=== PATIENT | female | born 1990 | race Hispanic/Latino ===

== ENCOUNTER 2018-03-26 19:43 | Emergency (ER) | payer MEDICAID, OTHER ==
[2018-03-26 20:25] LABS: BASOPHILS % (AUTO) 0.6 % (0.0-5.0); EOSINOPHILS % (AUTO) 0.7 % (0.0-8.0); HEMATOCRIT 38.8 % (36-48); LYMPHOCYTES % (AUTO) 27.3 % (21.0-51.0); MEAN CORPUSCULAR HEMOGLOBIN 29.4 pg (27.0-33.0); MEAN CORPUSCULAR VOLUME 86.6 fL (79-99); MONOCYTES % (AUTO) 6.3 % (3.0-13.0); NEUTROPHILS % (AUTO) 65.1 % (40.0-77.0); PLATELET COUNT (AUTO) 302 K/uL (130-400); RED BLOOD CELL COUNT(AUTO) 4.48 MIL/uL (4.00-5.50); RED CELL DISTRIBUTION WIDTH 14.1 % (11.0-15.5)
[2018-03-26 20:35] LABS: APPEARANCE,URINE Clear (CLEAR); BILIRUBIN,URINE Negative (NEGATIVE); COLOR,URINE Yellow (YELLOW); GLUCOSE, URINE (UA) Negative (NEGATIVE); KETONES,URINE Negative (NEGATIVE); LEUKOCYTE ESTERASE ,URINE Small (NEGATIVE); NITRATE,URINE Negative (NEGATIVE); OCCULT BLOOD,URINE Small (NEGATIVE); PH,URINE 7.5 (5.0-8.0); PROTEIN,URINE Negative (NEGATIVE); UROBILINOGEN,URINE 0.2 mg/dL (0.2-1.0)
[2018-03-26 20:41] LABS: CREATININE 0.7 mg/dL (0.5-1.5); POTASSIUM 3.7 mmol/L (3.5-5.1)
[2018-03-26 21:20] LABS: BACTERIA,URINE Rare /HPF (None Seen); RBC,URINE 0-1 /HPF (0-1); WBC,URINE 0-1 /HPF (0-1)
[2018-03-26 21:21] LABS: SQUAMOUS EPITHELIAL CELL,UR Rare /HPF (0-2)
== END 2018-03-26 23:28 | disposition home or self-care (01) ==
LOC: EDH 19:43
DX: O20.0 Threatened abortion (principal); Z79.899 Other long term (current) drug therapy; Z98.890 Other specified postprocedural states; Z3A.09 9 weeks gestation of pregnancy
CPT/HCPCS: 36415; 76801; 80048; 81001; 84702; 85025; 86900; 86901; 87210; 87486; 87797

== ENCOUNTER 2022-09-22 16:26 | Emergency (ER) | payer MEDICAID, OTHER ==
[~2022-09-22] VITALS: Ht 160 cm; Wt 65.8 kg
[2022-09-22 16:30] VITALS: BP 144/79
[2022-09-22] MEDS ORDERED: IPRATROPIUM/ALBUTEROL SULFATE 3 ML SOLUTION IH ONE (17:00)
[2022-09-22] MEDS ORDERED: 0.9%NACL 1000ML 1,000 ML IV ONE (17:00)
[2022-09-22] MEDS ORDERED: ONDANSETRON 4MG INJ IVP ONE (17:00)
[2022-09-22] MEDS ORDERED: FAMOTIDINE 20MG VIAL IV ONE (17:00)
[2022-09-22] MEDS ORDERED: DiphenhydrAMINE HCL 50 MG/ML VIAL IV ONE (17:00)
[2022-09-22] MEDS ORDERED: SOLU-MEDROL 125MG VIAL IVP ONE (17:00)
[2022-09-22] MEDS ORDERED: FAMO40TA75 PO (18:32)
[2022-09-22] MEDS ORDERED: HYDR-3421 PO (18:32)
[2022-09-22] MEDS ORDERED: METH4TAB3 PO (18:32)
== END 2022-09-22 18:38 | disposition home or self-care (01) ==
LOC: EDH 16:26
DX: L50.9 Urticaria, unspecified (principal); T78.49XA Other allergy, initial encounter; Z98.890 Other specified postprocedural states; X58.XXXA Exposure to other specified factors, initial encounter
CPT/HCPCS: 99291; 96374; 96375; 96361; 94640; J1200; J3490; J7030; J2930; J2405 ×2

== ENCOUNTER 2023-03-26 18:49 | Emergency (ER) | payer OTHER ==
[~2023-03-26] VITALS: Ht 157.5 cm; Wt 59.9 kg
[~2023-03-26 18:49] MED LIST: FAMO40TA75 PO; HYDR-3421 PO; METH4TAB3 PO
[2023-03-26 19:57] LABS: RAPID GROUP A STREP negative (NEGATIVE)
[2023-03-26] MEDS ORDERED: HYDROCODONE/ACETAMINOPHEN 5/325 MG TAB PO ONE (20:00)
[2023-03-26 20:07] LABS: INFLUENZA TYPE A Negative For Type A (NEGATIVE); INFLUENZA TYPE B Negative For Type B (NEGATIVE)
[2023-03-26 20:21] VITALS: BP 121/60; PULSE 80; RESP 14; O2SAT 98
[2023-03-26 20:27] LABS: SARS-CoV-2, RNA, NAAT NEGATIVE SARS CoV-2 (NEGATIVE)
== END 2023-03-26 21:32 | disposition left against medical advice (07) ==
LOC: EDH 18:49
DX: J02.9 Acute pharyngitis, unspecified (principal); Z20.822 Contact with and (suspected) exposure to COVID-19; Z53.21 Procedure and treatment not carried out due to patient leaving prior to being seen by health care provider
CPT/HCPCS: 99281; 87635; 87880; 87804 ×2; 81025; C9803

== ENCOUNTER 2023-04-10 05:45 | Inpatient (IN) | payer OTHER ==
[~2023-04-10] VITALS: Ht 154.9 cm; Wt 61.2 kg
[2023-04-10] MEDS ORDERED: NITROGLYCERIN 1GM OINT 1 INCH/1GM TD ONE (06:00)
[2023-04-10] MEDS ORDERED: LORAZEPAM 2 MG/ML 1 ML VIAL IVP ONE (06:00)
[2023-04-10] MEDS ORDERED: ASPIRIN 325MG TAB PO ONE (06:00)
[2023-04-10 06:03] LABS: BASOPHILS # (AUTO) 0.04 K/uL (0.00-0.20); BASOPHILS % (AUTO) 0.6 % (0.0-5.0); EOSINOPHILS # (AUTO) 0.23 K/uL (0.00-0.70); EOSINOPHILS % (AUTO) 3.5 % (0.0-8.0); HEMATOCRIT 36.2 % (36-48); IMMATURE GRANULOCYTE ABSOLUTE 0.03 K/uL (0-1); MEAN CORPUSCULAR HGB CONC 30.7 g/dL (32.0-36.0); MEAN CORPUSCULAR VOLUME 74.9 fL (79-99); MONOCYTES # (AUTO) 0.5 K/uL (0.1-1.0); MONOCYTES % (AUTO) 8.1 % (3.0-13.0); NEUTROPHILS # (AUTO) 3.7 K/uL (1.8-7.7); NEUTROPHILS % (AUTO) 56.3 % (40.0-77.0); PLATELET COUNT (AUTO) 475 K/uL (130-400); RED BLOOD CELL COUNT(AUTO) 4.83 MIL/uL (4.00-5.50); WHITE BLOOD COUNT (AUTO) 6.5 K/uL (4.8-10.8)
[2023-04-10 06:18] LABS: APPEARANCE,URINE CLEAR (CLEAR); BILIRUBIN,URINE NEGATIVE (NEGATIVE); COLOR,URINE COLORLESS (YELLOW); GLUCOSE, URINE (UA) NEGATIVE (NEGATIVE); KETONES,URINE NEGATIVE (NEGATIVE); LEUKOCYTE ESTERASE ,URINE NEGATIVE Leu/uL (NEGATIVE); NITRATE,URINE NEGATIVE (NEGATIVE); OCCULT BLOOD,URINE NEGATIVE (NEGATIVE); PH,URINE 5.5 (5.0-8.0); PROTEIN,URINE NEGATIVE (NEGATIVE); UROBILINOGEN,URINE 0.2 mg/dL (0.2-1.0)
[2023-04-10 06:22] LABS: ALCOHOL, BLOOD < 3 mg/dL (0-10)
[2023-04-10 06:28] LABS: CHLORIDE 98 mmol/L (101-111); CREATINE KINASE, TOTAL 79 U/L (21-232); CREATININE 0.7 mg/dL (0.5-1.5); GLOMERULAR FILTR. RATE CALC 116 mL/min (>90); GLUCOSE,RANDOM 98 mg/dL (70-105); POTASSIUM 3.2 mmol/L (3.5-5.1); SODIUM SERUM 136 mmol/L (136-145); UREA NITROGEN, BLOOD 4 mg/dL (7-18)
[2023-04-10 06:32] LABS: AMPHET/METH SCREEN,URINE NEGATIVE (NEGATIVE); BARBITURATE SCREEN, URINE NEGATIVE (NEGATIVE); BENZODIAZEPINES SCREEN,URINE NEGATIVE (NEGATIVE); CANNABINOID SCREEN,URINE NEGATIVE (NEGATIVE); COCAINE SCREEN,URINE POSITIVE (NEGATIVE); OPIATE SCREEN,URINE NEGATIVE (NEGATIVE); PHENCYCLIDINE SCREEN,URINE NEGATIVE (NEGATIVE)
[2023-04-10 06:36] LABS: CARBON DIOXIDE 23 mmol/L (21-32)
[2023-04-10 06:37] LABS: HCG,QUALITATIVE URINE NEGATIVE (NEGATIVE)
[2023-04-10 06:38] LABS: ADD UA MICROSCOPIC NO
[2023-04-10 06:52] LABS: B-TYPE NATRIURETIC PEPTIDE < 5 pg/mL (0-100)
[2023-04-10] MEDS ORDERED: METOPROLOL TARTRATE 1 MG/ML 5ML VIAL IV PRN (07:00)
[2023-04-10] MEDS ORDERED: KCL 20 MEQ ERTAB PO ONE (08:30)
[2023-04-10] MEDS ORDERED: PHARMACY COMMUNICATION MISC PRN (09:30)
[2023-04-10] MEDS ORDERED: CHLORDIAZEPOXIDE HCL 25 MG CAP PO PRN (09:30)
[2023-04-10] MEDS ORDERED: THIAMINE HCL 100 MG, FOLIC ACID 1 MG, M.V.I. IV [ADULT] 10 ML in 0.9%NACL 1000ML 1,000 ML IV SCH (09:30)
[2023-04-10] MEDS ORDERED: LORAZEPAM 2 MG/ML 1 ML VIAL IVP PRN (09:30)
[2023-04-10] MEDS ORDERED: CHLORDIAZEPOXIDE HCL 25 MG CAP PO ONE (11:30)
[2023-04-10 17:00] VITALS: O2SAT 99
[2023-04-10 19:28] VITALS: BP 101/85; PULSE 103; RESP 20
[2023-04-10 20:00] VITALS: O2SAT 99
[2023-04-10] MEDS ORDERED: FAMOTIDINE 20MG TAB PO SCH (21:00)
== END 2023-04-10 23:36 | disposition left against medical advice (07) | DRG 313 ==
LOC: EDH 05:45 → EDHIP 09:01 → 2DH 16:11
PROVIDERS: ADMIT Internal Medicine; ATTEND Internal Medicine
DX: R07.89 Other chest pain (principal); F14.10 Cocaine abuse, uncomplicated; F17.210 Nicotine dependence, cigarettes, uncomplicated; F32.A Depression, unspecified; F41.1 Generalized anxiety disorder; F43.22 Adjustment disorder with anxiety; F10.90 Alcohol use, unspecified, uncomplicated; Y90.9 Presence of alcohol in blood, level not specified; R00.0 Tachycardia, unspecified
CPT/HCPCS: 36415; 71045; 80048; 80305; 81003; 81025; 82550; 83735; 83880; 84484; 85025; 93005; 93306; 96365; 96375; G0378; J2060; J3411; J3490; J7030

== ENCOUNTER 2024-03-07 20:11 | Emergency (ER) | payer SELFPAY ==
[~2024-03-07] VITALS: Ht 162.6 cm; Wt 68.9 kg
[2024-03-07 20:15] VITALS: TEMP 98.3
[2024-03-07 21:09] LABS: BASOPHILS # (AUTO) 0.04 K/uL (0.00-0.20); BASOPHILS % (AUTO) 0.6 % (0.0-5.0); EOSINOPHILS # (AUTO) 0.28 K/uL (0.00-0.70); EOSINOPHILS % (AUTO) 4.5 % (0.0-8.0); HEMATOCRIT 35.8 % (36-48); IMMATURE GRANULOCYTE ABSOLUTE 0.09 K/uL (0-1); LYMPHOCYTES # (AUTO) 1.7 K/uL (1.0-4.8); LYMPHOCYTES % (AUTO) 26.2 % (21.0-51.0); MEAN CORPUSCULAR HEMOGLOBIN 23.6 pg (27.0-33.0); MEAN CORPUSCULAR HGB CONC 30.2 g/dL (32.0-36.0); MEAN CORPUSCULAR VOLUME 78.3 fL (79-99); MONOCYTES # (AUTO) 0.7 K/uL (0.1-1.0); MONOCYTES % (AUTO) 10.8 % (3.0-13.0); NEUTROPHILS # (AUTO) 3.6 K/uL (1.8-7.7); NEUTROPHILS % (AUTO) 56.5 % (40.0-77.0); PLATELET COUNT (AUTO) 359 K/uL (130-400); RED BLOOD CELL COUNT(AUTO) 4.57 MIL/uL (4.00-5.50); RED CELL DISTRIBUTION WIDTH 17.2 % (11.0-15.5); WHITE BLOOD COUNT (AUTO) 6.3 K/uL (4.8-10.8)
[2024-03-07 21:17] LABS: CREATININE 0.9 mg/dL (0.5-1.0)
[2024-03-07 22:21] LABS: COVID19 (SARS ANTIGEN RAPID) PRESUMPTIVE NEGATIVE (NEGATIVE); INFLUENZA TYPE A Negative For Type A (NEGATIVE); INFLUENZA TYPE B Negative For Type B (NEGATIVE)
[2024-03-07 23:17] LABS: APPEARANCE,URINE CLOUDY (CLEAR); BILIRUBIN,URINE NEGATIVE (NEGATIVE); COLOR,URINE YELLOW (YELLOW); GLUCOSE, URINE (UA) NEGATIVE (NEGATIVE); KETONES,URINE 5 mg/dL (NEGATIVE); LEUKOCYTE ESTERASE ,URINE 500 Leu/uL (NEGATIVE); NITRATE,URINE NEGATIVE (NEGATIVE); OCCULT BLOOD,URINE NEGATIVE (NEGATIVE); PROTEIN,URINE 70 mg/dL (NEGATIVE)
[2024-03-07 23:24] LABS: AMPHET/METH SCREEN,URINE NEGATIVE (NEGATIVE); BARBITURATE SCREEN, URINE NEGATIVE (NEGATIVE); BENZODIAZEPINES SCREEN,URINE NEGATIVE (NEGATIVE); CANNABINOID SCREEN,URINE NEGATIVE (NEGATIVE); COCAINE SCREEN,URINE POSITIVE (NEGATIVE); OPIATE SCREEN,URINE NEGATIVE (NEGATIVE); PHENCYCLIDINE SCREEN,URINE NEGATIVE (NEGATIVE)
[2024-03-07 23:26] LABS: ADD UA MICROSCOPIC YES
[2024-03-07 23:30] LABS: BACTERIA,URINE FEW /HPF (None Seen); MUCUS,URINE MANY LPF (None Seen); SQUAMOUS EPITHELIAL CELL,UR FEW /HPF (0-2); WBC,URINE TNTC /HPF (0-1)
[2024-03-07] MEDS: cefTRIAXone 1G VIAL IM ONE (23:58)
[2024-03-08 00:11] VITALS: BP 108/52; PULSE 74; RESP 18; O2SAT 96
[2024-03-08] MEDS ORDERED: SULF1TAB42 PO (00:12)
[2024-03-08] MEDS ORDERED: ERYT1OIN7 OP (00:12)
== END 2024-03-08 00:37 | disposition home or self-care (01) ==
LOC: EDH 20:11
DX: R55 Syncope and collapse (principal); D64.9 Anemia, unspecified; N39.0 Urinary tract infection, site not specified; F14.10 Cocaine abuse, uncomplicated; M79.89 Other specified soft tissue disorders; Z79.899 Other long term (current) drug therapy; Z20.822 Contact with and (suspected) exposure to COVID-19
CPT/HCPCS: 99285; 70450; 71045; 87426; 84484; 80048; 80305; 84703; 85025; 87086 ×2; 87186; 87804 ×2; 36415; 96372; 93005; 81001; J0696

== ENCOUNTER 2024-09-14 03:15 | Emergency (ER) | payer BC, MEDICAID ==
[~2024-09-14] VITALS: Ht 157.5 cm; Wt 65.8 kg
[~2024-09-14 03:15] MED LIST changes: +ERYT1OIN7 OP; +SULF1TAB42 PO
[2024-09-14 03:51] LABS: BASOPHILS # (AUTO) 0.08 K/uL (0.00-0.20); BASOPHILS % (AUTO) 0.8 % (0.0-5.0); HEMATOCRIT 42.8 % (36-48); IMMATURE GRANULOCYTE ABSOLUTE 0.04 K/uL (0-1); LYMPHOCYTES # (AUTO) 2.4 K/uL (1.0-4.8); LYMPHOCYTES % (AUTO) 23.7 % (21.0-51.0); MEAN CORPUSCULAR HEMOGLOBIN 26.2 pg (27.0-33.0); MEAN CORPUSCULAR HGB CONC 31.8 g/dL (32.0-36.0); MEAN CORPUSCULAR VOLUME 82.5 fL (79-99); MONOCYTES # (AUTO) 0.6 K/uL (0.1-1.0); MONOCYTES % (AUTO) 6.3 % (3.0-13.0); NEUTROPHILS # (AUTO) 6.8 K/uL (1.8-7.7); NEUTROPHILS % (AUTO) 67.8 % (40.0-77.0); PLATELET COUNT (AUTO) 481 K/uL (130-400); RED BLOOD CELL COUNT(AUTO) 5.19 MIL/uL (4.00-5.50); RED CELL DISTRIBUTION WIDTH 15.9 % (11.0-15.5); WHITE BLOOD COUNT (AUTO) 10.1 K/uL (4.8-10.8)
[2024-09-14 03:56] LABS: CREATININE 0.7 mg/dL (0.5-1.0); POTASSIUM 3.6 mmol/L (3.5-5.1)
[2024-09-14 03:59] LABS: APPEARANCE,URINE CLOUDY (CLEAR); BILIRUBIN,URINE NEGATIVE (NEGATIVE); COLOR,URINE LIGHT-YELLOW (YELLOW); GLUCOSE, URINE (UA) NEGATIVE (NEGATIVE); KETONES,URINE 10 mg/dL (NEGATIVE); LEUKOCYTE ESTERASE ,URINE 500 Leu/uL (NEGATIVE); NITRATE,URINE NEGATIVE (NEGATIVE); OCCULT BLOOD,URINE SMALL (NEGATIVE); PROTEIN,URINE NEGATIVE (NEGATIVE); UROBILINOGEN,URINE 0.2 mg/dL (0.2-1.0)
[2024-09-14 04:00] LABS: ADD UA MICROSCOPIC YES
[2024-09-14 04:04] LABS: BACTERIA,URINE FEW /HPF (None Seen); MUCUS,URINE RARE LPF (None Seen); NON-SQUAMOUS EPITHELIAL CELL 1 /HPF (0-2); SQUAMOUS EPITHELIAL CELL,UR MOD /HPF (0-2); WBC CLUMP FEW /HPF (0-1); WBC,URINE 26-50 /HPF (0-1)
--- NOTE | 2024-09-14 04:09 | ERN ---
General Chief Complaint: Shortness of Breath Stated Complaint: SOB Time Seen by MD: 03:40 Source: patient History of Present Illness Initial Comments Patient is a 34-year-old female who has not slept in two days from OD in on cocaine per her . He found her collapsed on the floor and brought her to the ED. it was a witnessed collapse and he thinks she was lying on the floor for maybe all of 5 minutes. Patient is extremely somnolent and so I was not able to get much history from her. Timing/Duration: 24 hours Allergies: Coded Allergies: No Known Drug Allergies (Unverified Allergy, Unknown, 06/06/16) Home Meds Active Scripts Erythromycin Base (Erythromycin) 5 Mg/Gram (0.5 %) Oint...g., 1 APPL OP DAILY for 14 Days, #1 UNIT 0 Refills apply 1 cm ribbon into the lower conjunctival sac Prov:NISSA ELMORE MD 03/08/24 Sulfamethoxazole/Trimethoprim (Bactrim Ds Tablet) 800 Mg-160 Mg Tablet, 1 TAB PO BID for 7 Days, #14 TAB 0 Refills Prov:NISSA ELMORE MD 03/08/24 Famotidine (Pepcid) 40 Mg Tablet, 40 MG PO DAILY for 5 Days, #5 TAB Prov:ADELIA LEON 09/22/22 Hydroxyzine HCl (Hydroxyzine HCl) 25 Mg Tablet, 25 MG PO BID for 5 Days, #10 TAB Prov:ADELIA LEON 09/22/22 Methylprednisolone (Medrol) 4 Mg Tab.ds.pk, 4 MG PO AD for 5 Days, #1 PACK Prov:ADELIA LEON 09/22/22 Past Medical History Past Medical History: No Pertinent History Past Surgical History: Social History Social History: Drugs ROS Dictation Could not obtain a review of systems from the patient she does say that her left arm and hand hurts and that she is really tired and dehydrated because she has not slept in two days. Physical Exam General Appearance: (+) other documentation General Appearance comment Patient is lying on hospital bed somnolent difficult to arouse. Pupils enlarged Eye: bilateral eye normal inspection, bilateral eye PERRL, bilateral eye EOMI, bilateral eye abnormal pupil Eyes Comment Bilateral enlarged pupils consistent with cocaine abuse Ear, Nose, Throat: (+) hearing grossly normal Neck: (+) normal inspection, (+) supple, (+) full range of motion Respiratory: (+) chest non-tender, (+) lungs clear, (+) well ventilated Heart: (+) regular, (+) no gallop Vascular: (+) no edema, (+) normal peripheral pulse Gastrointestinal: (+) soft, (+) non-tender, (+) bowel sound present Results Laboratory and Microbiology Lab and Micro Result Laboratory Tests Test 09/14/24 03:33 09/14/24 03:34 09/14/24 04:45 09/14/24 08:59 White Blood Count 10.1 K/uL (4.8-10.8) Red Blood Count 5.19 MIL/uL (4.00-5.50) Hemoglobin 13.6 g/dL (12.0-16.0) Hematocrit 42.8 % (36-48) Mean Corpuscular Volume 82.5 fL (79-99) Mean Corpuscular Hemoglobin 26.2 pg (27.0-33.0) L Mean Corpuscular Hemoglobin Concent 31.8 g/dL (32.0-36.0) L Red Cell Distribution Width 15.9 % (11.0-15.5) H Platelet Count 481 K/uL (130-400) H Mean Platelet Volume 9.4 fL (7.5-10.5) Immature Granulocyte % (Auto) 0.4 % (0-1) Neutrophils (%) (Auto) 67.8 % (40.0-77.0) Lymphocytes (%) (Auto) 23.7 % (21.0-51.0) Monocytes (%) (Auto) 6.3 % (3.0-13.0) Eosinophils (%) (Auto) 1.0 % (0.0-8.0) Basophils (%) (Auto) 0.8 % (0.0-5.0) Neutrophils # (Auto) 6.8 K/uL (1.8-7.7) Lymphocytes # (Auto) 2.4 K/uL (1.0-4.8) Monocytes # (Auto) 0.6 K/uL (0.1-1.0) Eosinophils # (Auto) 0.10 K/uL (0.00-0.70) Basophils # (Auto) 0.08 K/uL (0.00-0.20) Absolute Immature Granulocyte (auto 0.04 K/uL (0-1) Nucleated Red Blood Cells 0.0 % (0.0-0.19) Sodium Level 137 mmol/L (136-145) 135 mmol/L (136-145) L Potassium Level 3.6 mmol/L (3.5-5.1) 3.8 mmol/L (3.5-5.1) Chloride Level 97 mmol/L (101-111) L 98 mmol/L (101-111) L Carbon Dioxide Level 25 mmol/L (21-32) 23 mmol/L (21-32) Blood Urea Nitrogen 3 mg/dL (7-18) L 3 mg/dL (7-18) L Creatinine 0.7 mg/dL (0.5-1.0) 0.7 mg/dL (0.5-1.0) Glomerular Filtration Rate Calc 115 mL/min (>90) 115 mL/min (>90) Random Glucose 103 mg/dL (70-105) 87 mg/dL (70-105) Total Calcium 9.2 mg/dL (8.5-10.1) 8.9 mg/dL (8.5-10.1) Total Creatine Kinase 102 U/L (21-232) # Troponin I High Sensitivity < 4 ng/L (4-50) L < 4 ng/L (4-50) L B-Type Natriuretic Peptide < 5 pg/mL (0-100) Urine Color LIGHT-YELLOW (YELLOW) Urine Appearance CLOUDY (CLEAR) H Urine pH 5.0 (5.0-8.0) Urine Specific [place] 1.004 (1.001-1.031) Urine Protein NEGATIVE mg/dL (NEGATIVE) Urine Glucose (UA) NEGATIVE mg/dL (NEGATIVE) Urine Ketones 10 mg/dL (NEGATIVE) H Urine Occult Blood SMALL (NEGATIVE) H Urine Nitrate NEGATIVE (NEGATIVE) Urine Bilirubin NEGATIVE mg/dL (NEGATIVE) Urine Urobilinogen 0.2 mg/dL (0.2-1.0) Urine Leukocyte Esterase 500 Sherri/uL (NEGATIVE) H Urine RBC 11-25 /HPF (0-1) H Urine WBC 26-50 /HPF (0-1) H Urine WBC Clumps (Auto) FEW /HPF (0-1) Urine Squamous Epithelial Cells MOD /HPF (0-2) Urine Non-Squamous Epithelial Cells 1 /HPF (0-2) Urine Bacteria FEW /HPF (None Seen) Urine HCG, Qualitative NEGATIVE (NEGATIVE) Urine Opiates Screen NEGATIVE (NEGATIVE) Urine Barbiturates Screen NEGATIVE (NEGATIVE) Urine Phencyclidine Screen NEGATIVE (NEGATIVE) Urine Amphetamines Screen NEGATIVE (NEGATIVE) Urine Benzodiazepines Screen NEGATIVE (NEGATIVE) Urine Cocaine Screen POSITIVE (NEGATIVE) H Urine Marijuana (THC) Screen NEGATIVE (NEGATIVE) Lactic Acid Level 3.6 mmol/L (0.8-2.5) H 1.4 mmol/L (0.8-2.5) Total Bilirubin 0.4 mg/dL (0.2-1.0) Aspartate Amino Transf (AST/SGOT) 26 U/L (10-37) Alanine Aminotransferase (ALT/SGPT) 22 U/L (12-78) Alkaline Phosphatase 140 U/L (50-136) H Total Protein 8.3 g/dL (6.0-8.3) Albumin 3.6 g/dL (3.5-5.0) Salicylates Level < 2.8 mg/dL (2.8-20.0) L Acetaminophen Level < 1 mcg/mL (10-30) L Serum Alcohol 47 mg/dL (0-10) H Labs Reviewed?: Yes EKG/XRAY/US/CT/MRI EKG: (+) NSR EKG Comment 09/14/2024 TIME 3:23 A.M. VENTRICULAR RATE [address] WAVE ELEVATION OR DEPRESSION X-RAY Comment IMAGING REPORT Signed PATIENT: [place] CAZARES MR#: [id number] : 1990 SEX: F AGE: 34 LOCATION: ED ORDER 2 STATUS: REG ER REPORT#: [id number] SERVICE 2 REASON: CHEST PAIN ORDERING PHYSICIAN: CATALINA FLORES MD PROCEDURE: CXR1VW - CHEST 1VW PORTABLE CHEST RADIOGRAPH INDICATION: CHEST PAIN COMPARISON: 03/07/2024 FINDINGS: Heart size is normal. The pulmonary vascularity and ivan appear normal. No abnormal pulmonary parenchymal opacity or consolidation identified. No significant pleural effusion noted. No pneumothorax detected. IMPRESSION: No radiographic evidence for any acute cardiopulmonary process. DICTATED BY: JEANETH SHAH MD DATE: 09/14/24921 ELECTRONICALLY SIGNED BY: JEANETH SHAH MD DATE: 09/14/24924 MDM A 34-year-old female with a cocaine abuse dehydration and sleep deprivation. I will order a CBC chemistry panel UA. I will give her two boluses of LR. We will defer advanced imaging for now. I will also do a urine tox screen a blood alcohol level and tox screen for acetaminophen and aspirin salicylates orders written at 4:15 a.m. Patient's chemistry panel comes back normal, except for an elevated lactic acid of 3.6 and an alkaline phosphatase of 140. Urine is positive for esterase activity and few bacteria. Urine tox screen came back negative for everything except cocaine. Salicylates acetaminophen and blood alcohol are low. The extra labs were ordered to clear patient for tropical behavioral admission if patient's so desires when she wakes up. Patient is still too somnolent to discharge. THROUGHOUT ER VISIT PATIENT HAS BEEN STABLE. PATIENT WAS COUNSELED AGAINST DRUG ABUSE. LACTIC ACID IMPROVED. PATIENT WILL BE DISCHARGED IN STABLE CONDITION. ED Course Orders Procedure Category Date Status Time Vital Signs Per CPOE 09/14/24 Transmitted Routine 03:23 B-Type Natriuretic LAB 09/14/24 Complete Peptide 03:23 Chest 1vw RAD 09/14/24 Resulted 03:23 12 Lead Ekg Tracing- EKG 09/14/24 Resulted Technical 03:23 Oxygen By Nc/Pulse Ox CPOE 09/14/24 Transmitted 03:23 Maintain Iv CPOE 09/14/24 Transmitted 03:23 Iv Insertion CPOE 09/14/24 Transmitted 03:23 Cardiac Monitoring CPOE 09/14/24 Transmitted 03:23 Pulse Oximetry With CPOE 09/14/24 Transmitted Vs And Prn 03:23 Cbc With Differential LAB 09/14/24 Complete 03:23 Activity: Br W/Brp CPOE 09/14/24 Transmitted With Assist 03:23 Creatine Kinase, Total LAB 09/14/24 Complete 03:23 Troponin I High LAB 09/14/24 Complete Sensitivity 03:23 Urinalysis Profile LAB 09/14/24 Complete 03:23 Basic Metabolic Panel LAB 09/14/24 Complete 03:23 ,Urine Test LAB 09/14/24 Complete 03:33 Drug Screen Urine LAB 09/14/24 Complete 03:48 Culture Urine FRANCESCA 09/14/24 In Process 04:00 Comprehensive LAB 09/14/24 Complete Metabolic Panel 04:16 Alcohol, Blood LAB 09/14/24 Complete 04:16 Acetaminophen LAB 09/14/24 Complete 04:16 Salicylate LAB 09/14/24 Complete 04:16 Lactic Acid LAB 09/14/24 Complete 04:16 12 Lead Ekg Tracing- EKG 09/14/24 Logged Technical 04:16 Troponin I High LAB 09/14/24 Complete Sensitivity 04:16 Lactated Ringers PHA 09/14/24 Complete 1000ml (Lactated 04:46 Lactated Ringers PHA 09/14/24 Complete 1000ml (Lactated 05:00 Lactic Acid LAB 09/14/24 Complete 07:53 Ceftriaxone 1g Vial PHA 09/14/24 Complete (Rocephine 1g Inj) 09:00 Current Medications Medications (Trade) Dose Ordered Sig/Stevie Route PRN Reason Start Time Stop Time Status Last Admin Dose Admin Ceftriaxone Sodium (ROCEphine 1G INJ) 1 gm ONCE ONCE IVPB 09/14/24 09:00 09/14/24 09:01 DC 09/14/24 09:54 Lactated Ringer's (Lactated Ringers 1000ml) 1,000 ml BOLUS STAT IV 09/14/24 04:46 09/14/24 04:47 DC 09/14/24 04:52 Lactated Ringer's (Lactated Ringers 1000ml) 1,000 ml ONCE ONCE IV 09/14/24 05:00 09/14/24 05:01 DC 09/14/24 05:05 Vital Signs Date Time Temp Pulse Resp B/P (MAP) Pulse Ox O2 Delivery O2 Flow Rate FiO2 09/14/24 06:15 98.4 94 20 136/89 100 Room Air* 0 21 09/14/24 04:48 96 18 134/94 100 Room Air* 0 21 09/14/24 03:37 98.6 110 20 137/93 99 Room Air* 0 21 09/14/24 03:17 98.8 138 18 166/115 99 Room Air DX & DISP Disposition: Discharge Departure Impression: Primary Impression: Cocaine abuse Additional Impression: UTI (urinary tract infection) Condition: Stable Additional Instructions: FOLLOW-UP WITH PRIMARY CARE PROVIDER IN 1 TO 2 DAYS. TAKE MEDICATIONS DIRECTED HERE IN THE EMERGENCY ROOM. OKAY TO CONTINUE HOME MEDICATIONS UNLESS OTHERWISE DISCUSSED DURING YOUR VISIT IN THE EMERGENCY ROOM TODAY. RETURN TO YOUR NEAREST EMERGENCY ROOM IF SYMPTOMS WORSEN OR IF THERE IS NO IMPROVEMENT. CALL 911 IF YOU NEED IMMEDIATE ASSISTANCE. TAKE TYLENOL [id number] NEEDED AND IF NO CONTRAINDICATIONS ARE PRESENT. INCREASE ORAL HYDRATION. A WOUND CULTURE OR URINE CULTURE WAS ORDERED HERE IN THE EMERGENCY ROOM DEPARTMENT PLEASE FOLLOW-UP WITH PRIMARY CARE PROVIDER AND ADVISE THEM TO GET REPEAT PORTS FROM OUR FACILITY. IF YOU HAD ANY JENNIFER WRAP/SPLINTS THAT WERE APPLIED HERE, PLEASE DO NOT REMOVE THEM UNTIL YOU SEE YOUR PRIMARY CARE OR SPECIALTY. PATIENT RECEIVED IV ANTIBIOTICS FOR HER UTI. REFERRALS: Referrals: REFUGIO MORGAN (PCP) Time of Disposition: 10:14 CATALINA FLORES MD Sep 14, 2024 04:09 CHARLES GRIFFITH MD Sep 14, 2024 10:14
[2024-09-14 04:14] LABS: AMPHET/METH SCREEN,URINE NEGATIVE (NEGATIVE); BARBITURATE SCREEN, URINE NEGATIVE (NEGATIVE); BENZODIAZEPINES SCREEN,URINE NEGATIVE (NEGATIVE); CANNABINOID SCREEN,URINE NEGATIVE (NEGATIVE); COCAINE SCREEN,URINE POSITIVE (NEGATIVE); OPIATE SCREEN,URINE NEGATIVE (NEGATIVE); PHENCYCLIDINE SCREEN,URINE NEGATIVE (NEGATIVE)
[2024-09-14] MEDS: LACTATED RINGERS 1000ML IV STA (04:52)
[2024-09-14 05:00] LABS: CARBON DIOXIDE 23 mmol/L (21-32); CHLORIDE 98 mmol/L (101-111); CREATININE 0.7 mg/dL (0.5-1.0); GLOMERULAR FILTR. RATE CALC 115 mL/min (>90); GLUCOSE,RANDOM 87 mg/dL (70-105); POTASSIUM 3.8 mmol/L (3.5-5.1); SODIUM SERUM 135 mmol/L (136-145); UREA NITROGEN, BLOOD 3 mg/dL (7-18)
[2024-09-14] MEDS: LACTATED RINGERS 1000ML IV ONE (05:05)
[2024-09-14 05:07] LABS: ALANINE AMINOTRANSFERASE 22 U/L (12-78); ALBUMIN 3.6 g/dL (3.5-5.0); ALCOHOL, BLOOD 47 mg/dL (0-10); ASPARTATE AMINOTRANSFERASE 26 U/L (10-37); BILIRUBIN,TOTAL 0.4 mg/dL (0.2-1.0); TOTAL PROTEIN, SERUM 8.3 g/dL (6.0-8.3)
[2024-09-14 05:14] LABS: ACETAMINOPHEN < 1 mcg/mL (10-30); SALICYLATE < 2.8 mg/dL (2.8-20.0)
[2024-09-14 05:32] LABS: B-TYPE NATRIURETIC PEPTIDE < 5 pg/mL (0-100)
--- NOTE | 2024-09-14 07:56 | EKG ---
[facility] Test Date: 2024-09-14 Test Time: 03:23:00 Pat Name: [place] CAZARES Department: ED Room: Gender: F Tray Server: [id number] : 1990 Requested By: CATALINA FLORES Order Number: [id number] Reading MD: Daniela Núñez Measurements Intervals [place] Rate: 122 P: 64 NE: 157 QRS: 27 QRSD: 75 T: 32 QT: 329 QTc: 469 Interpretive Statements Sinus tachycardia Probable left atrial enlargement Compared to ECG 03/07/2024 20:56:30 Sinus rhythm no longer present Electronically Signed On 09-14-2024 09:34:13 CDT by Daniela Núñez Please click the below link to view image of tracing.
--- NOTE | 2024-09-14 09:25 | HMCIMG ---
PORTABLE CHEST RADIOGRAPH INDICATION: CHEST PAIN COMPARISON: 03/07/2024 FINDINGS: Heart size is normal. The pulmonary vascularity and ivan appear normal. No abnormal pulmonary parenchymal opacity or consolidation identified. No significant pleural effusion noted. No pneumothorax detected. IMPRESSION: No radiographic evidence for any acute cardiopulmonary process.
[2024-09-14] MEDS: cefTRIAXone 1G VIAL IVPB ONE (09:54)
[2024-09-14 10:33] VITALS: BP 111/70; PULSE 84; RESP 20; TEMP 98.4; O2SAT 100
== END 2024-09-14 10:43 | disposition home or self-care (01) ==
LOC: EDH 03:15
DX: N39.0 Urinary tract infection, site not specified (principal); F14.10 Cocaine abuse, uncomplicated; Z79.899 Other long term (current) drug therapy; Z98.890 Other specified postprocedural states
CPT/HCPCS: 99284; 96365; 96361; 71045; 82550; 84484 ×2; 80053; 83880; 80305; 85025; 87086; 83605 ×2; 81025; 36415; 93005; 81001; G0481; J7120; J0696; 80048